=== PATIENT | female | born 1980 | race Asian ===

== ENCOUNTER → 2016-09-11 | Day surgery (SDC) | payer OTHER ==
[~2016-09-11] VITALS: Ht 152.4 cm; Wt 51.7 kg
[2016-09-11] VITALS (16 sets, daily range): BP systolic 85–111; BP diastolic 41–61
[~2016-09-11] MED LIST: Acetaminophen (Non formulary) 100 ML IV ONE; Alfentanil 2ml Inj ONE; Atropine Inj 1mg/10ml Syr IV PRN; Dexamethasone 4mg/ml vial ONE; DiphenhydrAMINE 50mg/ml Inj IVP PRN; Glycopyrrolate 0.2mg/ml 1ml Vial ONE; HYDROmorphone 1mg/ml Carpuject SUBQ PRN; Ketorolac 30mg Inj IV PRN; Ketorolac 60mg Inj IV PRN; LORazepam Inj 2mg/ml 1ml IV PRN; LR 1000ml 1,000 ML IVLG SCH; LR 1000ml ONE; Labetalol 5mg/ml 20ml vial IV PRN; Lidocaine 1% MPF 10mg/ml 5ml ONE; Meperidine 25mg/ml Inj IV PRN; Metoclopramide 10mg/2ml Inj IVP PRN; Metoprolol 5mg/5ml Inj ONE; Midazolam 2mg/2ml Inj IVP PRN; Midazolam 2mg/2ml Inj ONE; NKM; NS 275ml ONE; NS 55ml IV ONE; Neostigmine 1mg/ml 10ml Inj ONE; Norco 5mg/325mg tab ORAL PRN; Norco 7.5mg/325mg tab ORAL PRN; Oxycodone/Acetaminophen 5-325 ORAL PRN; Propofol 10mg/ml 20ml IV ONE; ProvayBlue 5mg/ml 10ml amp INJ ONE; Ropivacaine 2mg/ml Amp INJ ONE; Ropivacaine 5mg/ml Vial 20ml INJ ONE; Zemuron 50mg/5ml Inj IV ONE; cefOXitin 2gm Inj ONE; cefOXitin Sod 2 GM in D5W 110 ML IVPB ONE; fentaNYL 100 mcg/2 mL IV ONE; fentaNYL 100 mcg/2 mL IV PRN
--- NOTE | 2016-09-11 02:08 | History and Physical Report ---
DATE OF ADMISSION: 09/11/2016 PREOPERATIVE DIAGNOSIS: Increasing dysmenorrhea, dyspareunia, and probable endometriosis. HISTORY OF PRESENT ILLNESS: The patient has been followed by me since July of 2013. She has a history of both her mother and grandmother having endometriosis. She complained of thrombing pain in her left ovary where she ambulates. Since the patient desired to become , she was counseled and chose to have _expectent management. In January of 2015 , the patient underwent uterine hysteroscopy and removal of endometrial polyp. After this, she had has increasing dysmenorrhea and dyspareunia. Her ultrasound test done in 07/25/2016 was consistent with bilateral ovarian cysts, especially the one in the left ovary with hypoechoic content consistent with endometrioma. The patient was extensively consulted that she might have endometriosis and since she still attempted , decision was made to go with laparoscopy and ablation of the endometriosis versus control pill, Lupron, or other medical modality. PAST MEDICAL HISTORY: None. PAST SURGICAL HISTORY: Hysteroscopy with polypectomy. ALLERGIES: None. SOCIAL HISTORY: The patient does not smoke or drink. She lives with her . PHYSICAL EXAMINATION: VITAL SIGNS: Height 6 inches and weight 114. Blood pressure 100/60, respiratory rate 18, temperature is afebrile. HEAD AND NECK: Pupils equal and reactive to light. LUNGS: Clear to auscultation bilaterally. CARDIAC: Regular rate and rhythm. ABDOMEN: Soft, nondistended, and nontender. PELVIS: On bimanual eaxm bilateral adnexal fullness. Normal retroverted uterus. RECTAL: No nodularity. No masses. EXTREMITIES: No cords. No cyanosis. No edema. LABORATORY AND DIAGNOSTIC DATA: On 09/08/2016, white count is 8.07, hemoglobin is 13.3, hematocrit is 38.5, and platelets 299,000. Blood type A+. HCG is negative. Anti mullerian hormone 0.62. ASSESSMENT: The patient is a 36-year-old with increasing dysmenorrhea and dyspareunia with a history of endometriosis in summary, and bilateral hypoechoic masses. PLAN: Diagnostic laparoscopy, possible bilateral hysterectomy, possible ablation of endometriosis, possible lysis of adhesions, and procedure. Karen Damian M.D. DR: MABEL JOB#: [id number] CC: KAITLIN
--- NOTE | 2016-09-11 07:13 | Anethesia Preoperative Eval ---
Anesthesia Pre-op PMH/ROS General Date of Evaluation: Sep 11, 2016 Time of Evaluation: 07:26 Anesthesiologist: Haroon ASA Score: ASA 1 Mallampati Score Class I : Soft palate, uvula, fauces, pillars visible Class II: Soft palate, uvula, fauces visible Class III: Soft palate, base of uvula visible Class IV: Only hard plate visible Mallampati Classification: Class I Surgeon: Nati/Savanna Diagnosis: Bilateral Uterine Cysts Surgical Procedure: D&C, Hysteroscopy, Pelvisoscopy Anesthesia History: none Family History: no anesthesia problems Allergies: Coded Allergies: No Known Allergies (Unverified , 09/10/16) Medications: see eMAR Past Medical History Gastrointestinal/Genitourinary: Reports: other - Endometriosis PSxH Narrative: Appendectomy Anesthesia Pre-op Phys. Exam Physician Exam Last Vital Signs Date Time Temp Pulse Resp B/P Pulse Ox O2 Delivery O2 Flow Rate FiO2 09/11/16 06:52 101/53 09/11/16 06:50 98.2 65 20 96 Room Air Constitutional: NAD Neurologic: CN 2-12 intact Cardiovascular: RRR Respiratory: CTA Gastrointestinal: S/NT/ND Airway Exam Mallampati Score: Class I MO: full ROM: full Teeth: intact Anesthesia Pre-op A/P Labs Urine Test Test 09/11/16 06:30 Urine HCG, Qualitative Negative Risk Assessment & Plan Assessment: ASA 1 Plan: GA, BIS, Glidescope Status Change Before Surgery: No Pre-Antibiotics Dru Gram Cefoxitin IV Given Within 1 Hr of Incision: Yes Time Given: 07:46 Goldy Patiño MD Sep 11, 2016 07:13
--- NOTE | 2016-09-11 07:38 | Pre-Procedure Note/Attestation ---
Pre-Procedure Note/Attestation Complete Prior to Procedure Planned Procedure: not applicable Procedure Narrative: Co2 laser pelviscopy, possible bilateral cystectomies, possible ablation of endometriosis, hysteroscopy possible curettage Indications for Procedure Pre-Operative Diagnosis: dysmenorhea/ dysparunia, endometriosis Attestation I attest that I discussed the nature of the procedure; its benefits; risks and complications; and alternatives (and the risks and benefits of such alternatives ), prior to the procedure, with the patient (or the patient's legal pharmaceutical specialty representative). I attest that, if there was a reasonable possibility of needing a blood transfusion, the patient (or the patient's legal pharmaceutical specialty representative) was given the [place] Department [employer] Services standardized written summary, pursuant to the Terry Ady Blood Safety Act ([place] Health and Safety Code # 1645, as amended). I attest that I re-evaluated the patient just prior to the surgery and that there has been no change in the patient's H&P, except as documented below: STEPHEN BLAKELY Sep 11, 2016 07:38
--- NOTE | 2016-09-11 09:45 | Immediate Post-Op Evaluation ---
Immediate Post-Op Evalulation Immediate Post-Op Evalulation Procedure: D&C, Hysteroscopy, Pelvisoscopy Date of Evaluation: Sep 11, 2016 Time of Evaluation: 09:52 IV Fluids: 900 LR Blood Products: 0 Estimated Blood Loss: 25 Urinary Output: 0 Blood Pressure Systolic: 104 Blood Pressure Diastolic: 54 Pulse Rate: 62 Respiratory Rate: 16 O2 Sat by Pulse Oximetry: 97 Temperature (Fahrenheit): 98.1 Pain Score (1-10): 1 Nausea: No Vomiting: No Complications 0 Patient Status: awake, reacts, patent, extubated, none Hydration Status: adequate Dru Grams Cefoxitin IV Given Within 1 Hr of Incision: Yes Time Given: 11:46 Goldy Patiño MD Sep 11, 2016 09:45
--- NOTE | 2016-09-11 09:46 | 48 Hour Post Anesthesia Eval ---
Post Anesthesia Evaluation Procedure: D&C, Hysteroscopy, Pelvisoscopy Date of Evaluation: Sep 11, 2016 Time of Evaluation: 11:57 Blood Pressure Systolic: 101 0: 56 Pulse Rate: 62 Respiratory Rate: 18 Temperature (Fahrenheit): 98.4 O2 Sat by Pulse Oximetry: 97 Airway: patent Nausea: No Vomiting: No Pain Intensity: 2 Cardiopulmonary Status: Stable Follow-up Care/Observations: 0 Post-Anesthesia Complications: 0 Follow-up care needed: ready to discharge Goldy Patiño MD Sep 11, 2016 09:46
--- NOTE | 2016-09-11 09:48 | Brief Operative Note ---
Immediate Post Operative Note Operative Note Pre-op Diagnosis: dysmenorhea/ dysparunia, endometriosis Procedure: Co2 laser pelviscopy, ablation of endometriosis, lysis of adhesions, hysteroscopy ecc Post-op Diagnosis: same dense adhesions between ethan and right round ligament/ endo on left ovary and left ovary adherent to uterosacral Post-op Diagnosis: same as pre-op Surgeon: melani [employer] Director: germán Anesthesiologist: Aaliyah Anesthesia: general Specimen: yes Complications: none Condition: stable Estimated Blood Loss: minimal Drains: none Implant(s) used?: No STEPHEN BLAKELY Sep 11, 2016 09:48
[2016-09-11] MEDS: Hydromorphone 0.5mg/0.5ml inj IVP PRN ×2 (10:37→11:07)
--- NOTE | 2016-09-12 02:18 | Operative Note - Dictated ---
PREOPERATIVE DIAGNOSES: Dysmenorrhea and dyspareunia, probable endometriosis. POSTOPERATIVE DIAGNOSES: Dysmenorrhea, dyspareunia, and endometriosis. SURGEON: Karen Damian M.D. HAT FINISHER: Eduardo Corrales M.D. ANESTHESIOLOGIST: Goldy Patiño M.D. PROCEDURES: 1. CO2 laser pelviscopy. 2. Ablation of endometriosis. 3. Lysis of adhesions. 4. Enterolysis. 5. Hysteroscopy. 6. Endocervical curettage. 7. Chromopertubation. ESTIMATED BLOOD LOSS: Minimal. ANESTHESIA: General endotracheal. PROCEDURE IN DETAIL: After ensuring informed consent, the patient was taken to the operating room where general anesthesia was induced. The patient was sterilely prepped and draped. Weighted speculum was placed in the vagina. Cervix was dilated to an 8 Hegar dilator. The hysteroscope was placed inside the uterine cavity. Uterine cavity was distended with normal saline. Normal appearing uterine cavity was observed. Hysteroscope was removed. The endocervical curettage was performed. This patient has a prior history of dysplasia. A HUMI-type manipulator was placed inside the uterus. Attention was turned to the abdomen where a small incision was made inside the umbilicus. Veress needle was placed inside the abdominal cavity and intraperitoneal placement was confirmed with low opening pressures. Pneumoperitoneum was achieved. Next, a 10-mm trocar was placed inside the umbilicus. Intraperitoneal placement was confirmed with the laparoscope. Next, the left lateral suprapubic 5-mm ports were Introduced. After infiltration with local anesthetic, pelvis was inspected. There were dense adhesions between the sigmoid colon and right round ligament and uterus. There were adhesions between the bladder, peritoneum, and anterior uterus, especially prominent at the right round. There were adhesions between left ovary and left ovarian fossa. There was an implant of endometriosis on the right uterosacral. Liver appeared normal. Using CO2 laser and both blunt dissection, the left lesion between the round ligament and the bladder was lysed until the bladder was completely freed from the left round ligament. Next, attention was turned to the right where there were adhesions between bowel and uterus in the right round. Again using a laser, a plane was undermined. Then using a dilute solution of Pitressin, that area was hydrodissected by injecting approximately 5 mL of dilute Pitressin solution into the peritoneum and the adhesion on that side. Next using laser and sharp dissection, the adhesion was lysed and bowel was freed from the uterus. Next, left ovary was bluntly lysed from the left ovarian fossa and some implants of endometriosis on the left uterosacral were ablated with CO2 laser as well as in the right uterosacral. Next cervix was copiously irrigated. Excellent hemostasis was assured. Chromopertubation was performed and free spill from both tubes were observed. Please note, there was what appeared like a left broad ligament fibroid that was approximately 2 cm to 3 cm in diameter. That was left alone because of the free spill from both tubes. At the end of the procedure, all trocars were removed under direct visualization. The patient was taken to the recovery area awake and in stable condition. All instrument and lap counts were correct. Karen Damian M.D. DR: JESSY JOB#: [id number] CC:
== END | disposition home or self-care (01) ==
LOC: SUR 06:13
DX: N94.6 Dysmenorrhea, unspecified (principal); N94.10 Unspecified dyspareunia; N80.3 Endometriosis of pelvic peritoneum; Z90.49 Acquired absence of other specified parts of digestive tract
CPT/HCPCS: 58558; 58662; 81025; J0694; J1100; J1170; J1885; J2250; J2405; J2704; J2710; J2765; J2795; J3010; J3490; J7050; J7120; Q9968; 94003; 94150